=== PATIENT | male | born 1975 | race African-American/Black ===

== ENCOUNTER 2024-09-02 13:13 | Outpatient (CLI) | payer BC, SELFPAY ==
--- OUTSIDE RECORDS SUMMARY | 2024-09-02 13:22 | XMS_ITS | Data Portability ---
Author Organization [facility] - Suzette CRUMP Address [address] [place] [address] Care Team Providers Care [employer] Travel Counselor Name Role Phone ARAMIS LEO Primary Care Provider [phone] Assessment Encounter Date Assessment Date Assessment LastModified by Organization Details LastModified Time 09/26/2023 09/26/2023 Pt presents as ER f/u. Pt with ED visit for the management of c/o skin abscess: tmond Not available 09/26/2023 21:11:04 12/11/2023 12/11/2023 ACUTE VISIT: Pt presents with acute complaints r/t : SKIN LESION tmond Not available 12/11/2023 12:11:58 04/15/2024 04/15/2024 Pt presents for annual visit. Denies acute problems or concerns: tmond Not available 04/15/2024 12:27:37 Plan of Treatment Reminders Order Date Submit Date Provider Last Modified By Organization Details Last Modified Time Details Appointments ANNUAL 30 2025 10:00A Maury LEO NP Not available Not available Not available Lab vitamin D, 25-hydrox y, total, serum 2024 025 [facility], [address], [address], [place], [address], 04/16/2024 08:26:35 HbA1c (hemoglob in A1c), blood 2024 025 [facility], [address], [address], [place], [address], 04/16/2024 08:26:31 lipid panel, serum 2024 025 [facility], [address] [place] [address], [address], [place], [address], 04/16/2024 08:26:28 TSH, ultra-sen sitive, serum 2024 025 [facility], [address] [place] [address], [address], [place], [address], 04/16/2024 08:26:30 CMP, serum or plasma 2024 025 [facility], [address] [place] [address], [address], [place], [address], 04/16/2024 08:26:29 CBC 2024 025 [facility], [address] [place] [address], [address], [place], [address], 04/16/2024 08:26:34 magnesium , serum or plasma 2024 025 [facility], [address] [place] [address], [address], [place], [address], 04/16/2024 08:26:33 Referral orthopedi c surgeon referral - Pt c/o intermitt ent right knee popping out of place for about 5 months, accompani ed by excruciat ing pain. Please further evaluate and treat if necessary . 2024 025 [facility], [address] [facility] [address] [facility], [place], [address], 08/03/2024 13:25:24 hearing screening referral - Pt notes decrease hearing in left ear for the past year, TM unremarka ble, please further evaluate and treat if necessary . [address] [facility] (Audiology), [address], [place], [address], 08/03/2024 13:30:34 Procedures None recorded. Surgeries None recorded. Imaging XR, knee, 3 view - Pt c/o intermitt ent right knee popping out of place for about 5 months. 2024 025 [facility], [address] [place], [address], 08/31/2024 04:14:17 Medication Orders atorvasta tin 20 mg tablet 2024 025 [facility][id number], [address], [place], [place], [id number], 08/03/2024 13:15:28 naproxen 500 mg tablet 2024 025 [facility][id number], [address], [place], [place], [id number], 09/02/2024 05:02:04 doxycycli ne hyclate 100 mg capsule 2023 025 [facility] #[id number], [address], [place], [place], [id number], 04/15/2024 12:13:54 clindamyc in 1 %-benzoyl peroxide 5 % topical gel 2023 024 [facility] #[id number], [address], [place], [place], [id number], 10/03/2023 22:42:11 fluticaso ne propionat e 50 mcg/actua tion nasal spray,emil pension 2023 024 [facility] #[id number], [address], [place], [place], [id number], 12/11/2023 10:36:59 Patient TargetsNo targets recorded. Patient Instructions Encounter Date Encounter Id Patient Instructions Last Modified By Organization Details Last Modified Time 09/26/2023 [id number] -Patient instructed to call office with changes in condition -Pt instructed to present to the ED or urgent care with urgent concerns or urgent changes in condition. tmond Not available 09/26/2023 21:11:15 -Discussed POC -Pt to follow up with routine f/u visit as discussed tmond Not available 09/26/2023 21:11:26 12/11/2023 [id number] folliculitis: care instructions tmond Not available 12/11/2023 12:12:21 -Patient instructed to call office with changes in condition -Pt instructed to present to the ED or urgent care with urgent concerns or urgent changes in condition. tmond Not available 12/11/2023 12:12:02 -Discussed POC -Pt to follow up with routine f/u visit as discussed tmond Not available 12/11/2023 12:12:12 04/15/2024 [id number] Quitting Tobacco : Care Instructions tmond Not available 04/15/2024 13:38:01 A healthy lifestyle: care instructions tmond Not available 04/15/2024 13:37:26 starting a weigh t loss plan: care instructions tmond Not available 04/15/2024 13:37:26 -Patient instructed to call office with changes in condition -Pt instructed to present to the ED or urgent care with urgent concerns or urgent changes in condition. tmond Not available 04/15/2024 12:20:21 -Discussed POC; further managed r/t pending lab values -Pt to follow up with routine f/u visit as discussed -Pt informed of optimum health recommendations: 150 mins of aerobic exercise weekly 7-9 hrs of sleep 7-13 servings of fruit and vegetables each day 1/2 of body weight in oz of water daily Plant based diet tmond Not available 04/15/2024 12:20:16 08/03/2024 [id number] A healthy lifestyle: care instructions [id number] Not available 08/03/2024 13:30:40 high cholesterol : care instructions [id number] Not available 08/03/2024 13:15:32 Quitting Tobacco : Care Instructions [email or web address] Not available 08/03/2024 13:30:40 knee pain or injury: care instructions [email or web address] Not available 08/03/2024 13:15:11 -Avoid using in-ear headphones (AirPods) continuously; use over-ear headphones if needed. -Keep headphone volume at a safe level (no louder than 60% max volume). -Follow up with audiology and orthopedics as referred. -Apply RICE (rest, ice, compression, elevation) to right knee if discomfort occurs. -Avoid kneeling, squatting, or high-impact activities until cleared by ortho. -Return to clinic or urgent care for worsening knee pain, instability, or if ear symptoms progress. [email or web address] Not available 08/03/2024 16:16:43 -POC discussed -Return to the office as needed [email or web address] Not available 08/03/2024 16:17:37 Reason for Referral Hearing Screening Referral f or Hearing loss of left ear Pt notes decrease hearing in left ear for the past year, TM unremarkable, please further evaluate and treat if necessary. Referring Physician: Danica Pressley [facility], Encounter Date: 08/03/2024 Orthopedic Surgeon Referral for Pain of right knee joint Pt c/o intermittent right knee popping out of place for about 5 months, accompanied by excruciating pain. Please further evaluate and treat if necessary. Referring Physician: Danica Pressley [facility], Encounter Date: 08/03/2024 Results Created Date Observation Date Name Description Value Unit Range Abnormal Flag Note LastModifiedBy Organization Detail LastModifiedTime 04/15/1904/16/2024 LIPID PANEL cholesterol, total 163 mg/dL 100-19 9 Not Available [facility] [address] [facility], [place], [address], 04/16/2024 08:26:27 04/15/19 25 04/16/2024 LIPID PANEL triglyceride s 67 mg/dL 0-149 Not Available [facility] [address] [facility], [place], [address], 04/16/2024 08:26:27 04/15/19 25 04/16/2024 LIPID PANEL HDL cholesterol 43 mg/dL >39 Not Available [facility] [address] [place], [address], 04/16/2024 08:26:27 04/15/19 25 04/16/2024 LIPID PANEL VLDL cholesterol magy 13 mg/dL 5-40 Not Available [facility] [address] [place], [address], 04/16/2024 08:26:27 04/15/19 25 04/16/2024 LIPID PANEL LDL chol calc ([facility]) 107 mg/dL 0-99 above high normal Not Available [facility] [address] [place], [address], 04/16/2024 08:26:27 04/15/19 25 04/16/2024 COMP. METAB OLIC PANEL (14) glucose 87 mg/dL 70-99 Not Available [facility] [address] [place], [address], 04/16/2024 08:26:29 04/15/19 25 04/16/2024 COMP. METAB OLIC PANEL (14) BUN 17 mg/dL 6-24 Not Available [facility] [address] [place], [address], 04/16/2024 08:26:29 04/15/19 25 04/16/2024 COMP. METAB OLIC PANEL (14) creatinine 0.86 mg/dL 0.76-1 .27 Not Available [facility] [address] [place], [address], 04/16/2024 08:26:29 04/15/19 25 04/16/2024 COMP. METAB OLIC PANEL (14) eGFR 107 mL/mi n/1.7 3 >59 Not Available [facility] [address] [place], [address], 04/16/2024 08:26:29 04/15/19 25 04/16/2024 COMP. METAB OLIC PANEL (14) BUN/creatini ne ratio 14 11- Not Available [facility] [address] [place], [address], 04/16/2024 08:26:29 04/15/19 25 04/16/2024 COMP. METAB OLIC PANEL (14) sodium 142 mmol/ L 134-14 4 Not Available [facility] [address] [place], [address], 04/16/2024 08:26:29 04/15/19 25 04/16/2024 COMP. METAB OLIC PANEL (14) potassium 4.6 mmol/ L 3.5-5. 2 Not Available [facility] [address] [place], [address], 04/16/2024 08:26:29 04/15/19 25 04/16/2024 COMP. METAB OLIC PANEL (14) chloride 104 mmol/ L 96-106 Not Available [facility] [address] [place], [address], 04/16/2024 08:26:29 04/15/19 25 04/16/2024 COMP. METAB OLIC PANEL (14) carbon dioxide, total 25 mmol/ L - Not Available [facility] [address] [place], [address], 04/16/2024 08:26:29 04/15/19 25 04/16/2024 COMP. METAB OLIC PANEL (14) calcium 9.8 mg/dL 8.7-10 .2 Not Available [facility] [address] [place], [address], 04/16/2024 08:26:29 04/15/19 25 04/16/2024 COMP. METAB OLIC PANEL (14) protein, total 7.8 g/dL 6.0-8. 5 Not Available [facility] [address] [place], [address], 04/16/2024 08:26:29 04/15/19 25 04/16/2024 COMP. METAB OLIC PANEL (14) albumin 4.6 g/dL 4.1-5. 1 Not Available [facility] [address] [place], [address], 04/16/2024 08:26:29 04/15/19 25 04/16/2024 COMP. METAB OLIC PANEL (14) globulin, total 3.2 g/dL 1.5-4. 5 Not Available [facility] [address] [place], [address], 04/16/2024 08:26:29 04/15/19 25 04/16/2024 COMP. METAB OLIC PANEL (14) bilirubin, total 0.2 mg/dL 0.0-1. 2 Not Available [facility] [address] [place], [address], 04/16/2024 08:26:29 04/15/19 25 04/16/2024 COMP. METAB OLIC PANEL (14) alkaline phosphatase 94 IU/L 44-121 Not Available [facility] [address] [place], [address], 04/16/2024 08:26:29 04/15/19 25 04/16/2024 COMP. METAB OLIC PANEL (14) AST (SGOT) 19 IU/L 0-40 Not Available [facility] [address] [place], [address], 04/16/2024 08:26:29 04/15/19 25 04/16/2024 COMP. METAB OLIC PANEL (14) ALT (SGPT) 13 IU/L 0-44 Not Available [facility] [address] [facility], [place], [address], 04/16/2024 08:26:29 04/15/19 25 04/16/2024 TSH RFX ON ABNOR MAL TO FREE T4 TSH 1.000 uIU/m L 0.450- 4.500 Not Available [facility] [address] [facility], [place], [address], 04/16/2024 08:26:30 04/15/19 25 04/16/2024 HEMOG LOBIN A1C hemoglobin A1C 6.0 % 4.8-5. 6 above high normal Predi abete s: 5.7 - 6.4 Diabe cecil: >6.4 Glyce trell contr ol for adult s with diabe cecil: <7.0 Not Available [facility] [address] [facility], [place], [address], 04/16/2024 08:26:31 04/15/19 25 04/16/2024 MAGNE SIUM magnesium 1.9 mg/dL 1.6-2. 3 Not Available [facility] [address] [facility], [place], [address], 04/16/2024 08:26:33 04/15/19 25 04/16/2024 CBC, PLATE LET, NO DIFFE RENTI AL WBC 9.4 x10e3 /uL 3.4-10 .8 Not Available [facility] [address] [place], [address], 04/16/2024 08:26:34 04/15/19 25 04/16/2024 CBC, PLATE LET, NO DIFFE RENTI AL RBC 4.86 x10e6 /uL 4.14-5 .80 Not Available [facility] [address] [place], [address], 04/16/2024 08:26:34 04/15/19 25 04/16/2024 CBC, PLATE LET, NO DIFFE RENTI AL hemoglobin 13.5 g/dL 13.0-1 7.7 Not Available [facility] [address] [facility], [place], [address], 04/16/2024 08:26:34 04/15/19 25 04/16/2024 CBC, PLATE LET, NO DIFFE RENTI AL hematocrit 42.0 % 37.5-5 1.0 Not Available [facility] [address] [facility], [place], [address], 04/16/2024 08:26:34 04/15/19 25 04/16/2024 CBC, PLATE LET, NO DIFFE RENTI AL MCV 86 fL 79-97 Not Available [facility] [address] [place], [address], 04/16/2024 08:26:34 04/15/19 25 04/16/2024 CBC, PLATE LET, NO DIFFE RENTI AL MCH 27.8 pg 26.6-3 3.0 Not Available [facility] [address] [facility], [place], [address], 04/16/2024 08:26:34 04/15/19 25 04/16/2024 CBC, PLATE LET, NO DIFFE RENTI AL MCHC 32.1 g/dL 31.5-3 5.7 Not Available [facility] [address] [place], [address], 04/16/2024 08:26:34 04/15/19 25 04/16/2024 CBC, PLATE LET, NO DIFFE RENTI AL RDW 12.7 % 11.6-1 5.4 Not Available [facility] [address] [place], [address], 04/16/2024 08:26:34 04/15/19 25 04/16/2024 CBC, PLATE LET, NO DIFFE RENTI AL platelets 225 x10e3 /uL 150-45 0 Not Available [facility] [address] [facility], [place], [address], 04/16/2024 08:26:34 04/15/19 25 04/16/2024 VITAM IN D, 25-HY DROXY vitamin D, 25-hydroxy 9.8 NG/mL 30.0-1 00.0 below low normal Vitam in D defic iency has been defin ed by the Insti tute of Medic ine and an Endoc rine Socie ty pract ice guide line as a level of serum 25-OH vitam in D less than 20 ng/mL (1,2) . The Endoc rine Socie ty went on to furth er defin e vitam in D insuf ficie ncy as a level betwe en 21 and 29 ng/mL (2). 1. IOM (Inst itute of Medic ine). 2009. Nicolas ry refer ence paolo es for calci um and D. Jonatan couch [place]: The Natio nal [facility] Press . 2. Ashli damon MF, Jennifer dickson [place], Micah off-F errar i [place], et al. Evalu ation , treat ment, and preve ntion of vitam in D defic iency : an Endoc rine Socie ty clini magy pract ice guide line. JCEM. 2010; 96(7) :1911 -30. Not Available [facility] [address] [facility], [place], [address], 04/16/2024 08:26:35 Result Notes None recorded. Problems Name Problem SNOMED Code Status Onset Date Resolution Date Notes Provider Name and Address Organization Details Recorded Time Headache 08947354 Active 2023 VENU VINES Attn: George mc,[address] [facility], [place], [address], [facility] 4 15:16:22 Cigar smoker 43081490 Active 2023 VENU VINES Attn: Accountin g,[address] [facility], [place], [address], [place] [facility] 4 15:19:04 Chronic sinusitis 83533231 Active 2023 VENU VINES Attn: Accountin g,[address] [facility], [place], [address], [place] [facility] 4 15:19:02 Influenza vaccination declined 594718601 Active 2023 VENU VINES Attn: Accountin g,[address] [facility], [place], [address], [place] [facility] 4 15:50:33 Tetanus vaccination declined by patient 971184881 Active 2023 VENU VINES Attn: Accountin g,[address] 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, [place], [address], [place] [facility] 4 13:47:38 Erectile dysfunction 310196385 Active 2023 VENU VINES Attn: Accountin g,[address] [facility], [place], [address], [place] [facility] 4 13:47:40 Body mass index 25-29 - overweight 051191653 Active 2024 VENU VINES Attn: Accountin g,[address] [facility], [place], [address], [place] [facility] 5 13:38:09 Nicotine dependence 40630296 Active 2024 VENU VINES Attn: Accountin g,[address] [facility], [place], [address], [place] [facility] 5 13:38:07 Prediabetes 149039394 Active 2024 VENU VINES Attn: George mc,[address] [place], [address], [place] [facility] 5 11:53:15 Vitamin D deficiency 14505235 Active 2024 VENU VINES Attn: George mc,[address] [place], [address], [place] [facility] 5 11:53:12 Hyperlipopr oteinemia 9591392 Active 2024 VENU VINES Attn: George mc,[address] [place], [address], [place] [facility] 5 11:53:17 Hearing loss of right ear 814521819 Active 2024 DANICA PRESSLEY NP Attn: Niallle mc,[address] [place], [address], [place] [facility] 5 13:08:04 Hearing loss of left ear 183539380 Active 2024 DANICA PRESSLEY NP Attn: George mc,[address] [place], [address], [place] [facility] 5 13:08:07 Smoker 18662652 Active 2024 DANICA PRESSLEY NP Attn: Niallle mc,[address] [place], [address], [place] [facility] 5 13:09:06 Overweight 052878835 Active 2024 DANICA PRESSLEY NP Attn: Niallle mc,[address] [place], [address], [place] [facility] 5 13:09:06 Recurrent dislocation of right knee Active 2024 DANICA PRESSLEY NP Attn: Niallle mc,[address] [place], [address], [place] [facility] 5 13:10:42 Pain of right knee joint 0901748023412 00 Active 2024 DANICA PRESSLEY NP Attn: George mc,[address] [facility], [place], [address] 5 13:11:22 Problem Notes None recorded. Procedures Surgical History Date Name Laterality Status Provider Name and Address Organization Details Recorded Time 3 procedure on shoulder completed Huma Pearce MA [facility] 03/19/2023 14:31:55 Imaging Results None recorded. Procedure Notes None recorded. Medical Equipment None Reported. Allergies Allergen ID Allergen Name Allergen Category Reaction Reaction Severity Criticality Documentation Date Start Date Code Code System Note Provider Name and Address Organization Details Recorded Time 952073 tramadol medicatio n itching Not available Not available 03/19/2023 29414 RxNorm IHSAN Wheeler, [facility] 4 14:28:58 552957 cetirizin e medicatio n Not available Not available Not available 04/19/20232023 37054 RxNorm Rayne CrenshawTrell [facility], [facility] 4 16:07:09 Medications Name Sig Start Date Stop Date Status Note LastModified by Organization Details LastModified Time Prescript ion - Prior Authoriza tion Request 10/02 completed medicati on prior authoriz ation Not Available Not Available Not Available Refresh Tears 0.5 % eye drops Apply 1 drop 4 times a day by ophthalm ic route around the clock. 07/29 completed Not Available Not Available Not Available doxycycli ne hyclate 100 mg capsule TAKE 1 CAPSULE BY MOUTH EVERY 12 HOURS FOR 10 DAYS 04/15 completed Not Available Not Available Not Available atorvasta tin 20 mg tablet TAKE 1 TABLET BY MOUTH EVERY EVENING FOR CHOLESTE ROL active Not Available Not Available No t Available clindamyc in HCl 300 mg capsule 09/25 completed Not Available Not Available Not Available cetirizin e 10 mg tablet TAKE 1 TABLET BY MOUTH EVERY MORNING FOR 90 DAYS 07/29 completed Not Available Not Available Not Available ibuprofen 800 mg tablet TAKE 1 TABLET BY MOUTH EVERY 4 TO 6 HOURS NEEDED 12/10 completed Not Available Not Available Not Available sumatript an 25 mg tablet PLEASE SEE ATTACHED FOR DETAILED DIRECTIO NS 07/29 completed Not Available Not Available Not Available clindamyc in 1 %-benzoyl peroxide 5 % topical gel APPLY TOPICALL Y TO THE AFFECTED AREA TWICE DAILY IN THE MORNING AND IN THE EVENING 10/02 completed Not Available Not Available Not Available aspirin 81 mg tablet,de layed release TAKE 1 TABLET BY MOUTH EVERY EVENING FOR CHOLESTE ROL active Not Available Not Available No t Available oseltamiv ir 75 mg capsule TAKE 1 CAPSULE BY MOUTH TWICE DAILY 07/29 completed Not Available Not Available Not Available neomycin- polymyxin -dexameth 3.5 mg/mL-10, 000 unit/mL-0 .1% eye drops INSTILL 1 DROP IN THE RIGHT EYE EVERY 6 HOURS 07/29 completed Not Available Not Available Not Available bisacodyl 5 mg tablet,de layed release TAKE ALL 4 TABLETS BY MOUTH AT THE BEGINNIN G OF YOUR PREP THE DAY PRIOR TO YOUR PROCEDUR E 07/29 completed Not Available Not Available Not Available ergocalci ferol (vitamin D2) 1,250 mcg (50,000 unit) capsule TAKE 1 CAPSULE BY MOUTH EVERY WEEK active Not Available Not Available No t Available polyethyl samantha glycol 3350 17 gram/dose oral powder KONG IN 64 OZ OF LIQUID AND DRINK BY MOUTH OVER 90 MINUTES NO LATER THAN 5 PM THE DAY PRIOR TO YOUR PROCEDUR E 07/29 completed Not Available Not Available Not Available fluticaso ne propionat e 50 mcg/actua tion nasal spray,emil pension SHAKE LIQUID AND USE 1 SPRAY IN EACH NOSTRIL EVERY 12 HOURS FOR SINUSITI S 12/10 completed Not Available Not Available Not Available naproxen 500 mg tablet Take 1 tablet twice a day by oral route as directed . 09/02 completed Not Available Not Available Not Available Allergy Relief (fexofena dine) 180 mg tablet TAKE 1 TABLET BY MOUTH EVERY DAY IN THE MORNING FOR ALLERGIE S 12/10 completed Not Available Not Available Not Available Xhance 93 mcg/actua tion breath activated aerosol [place] 1 spray every 12 hours by intranas al route for 90 days, for SINUSITI S. 09/254 completed Not Available Not Available Not Available Daily Probiotic (S. boulardii ) 250 mg capsule TAKE 1 CAPSULE BY MOUTH TWICE DAILY FOR 21 DAYS 12/10 completed Not Available Not Available Not Available Vitals Date Recorded Body height Body mass index (BMI) Body weight Body temperature Oxygen saturation Oxygen saturation in Arterial blood by Pulse oximetry Heart rate Systolic And Diastolic Provider Name and Address Organization Details Last Updated DateTime 5 187.96 cm 28.9 kg/m2 095363. 64 g 98 [degF] 98 % 98 % 90 /min 139/69 mm[Hg] Huma Pearce MA [facility] 5 12:15:32 Date Recorded Body height Body mass index (BMI) Body weight Oxygen saturation Oxygen saturation in Arterial blood by Pulse oximetry Heart rate Respiratory rate Body temperature Systolic And Diastolic Provider Name and Address Organization Details Last Updated DateTime 5 187.96 cm 28.1 kg/m2 39211.4 5 g 100 % 100 % 78 /min 18 /min 98.1 [degF] 127/78 mm[Hg] Naz Lara MA [facility] 5 12:35:23 Date Recorded Body height Body mass index (BMI) Body weight Oxygen saturation Oxygen saturation in Arterial blood by Pulse oximetry Body temperature Heart rate Systolic And Diastolic Provider Name and Address Organization Details Last Updated DateTime 4 187.96 cm 28 kg/m2 11446.1 4 g 98 % 98 % 96.6 [degF] 79 /min 128/86 mm[Hg] Huma Pearce MA [facility] 4 15:12:23 Date Recorded Body height Body mass index (BMI) Body weight Body temperature Oxygen saturation Oxygen saturation in Arterial blood by Pulse oximetry Heart rate Systolic And Diastolic Provider Name and Address Organization Details Last Updated DateTime 4 187.96 cm 28.8 kg/m2 560350. 69 g 97.6 [degF] 98 % 98 % 71 /min 118/72 mm[Hg] Huma Pearce MA [facility] 4 10:38:03 Social History Question Answer Notes LastModified by Organizat ion Details LastModified Time Tobacco Smoking Status Current Every Day Smoker Huma Pearce MA [facility] 09/11/2023 12:38:31 Do You Have An Advance Directive? No Information n ot available 04/23/2023 Are You Blind Or Do You Have Difficulty Seeing? Yes Information n ot available 03/19/2023 What Is Your Level Of Caffeine Consumption? Heavy Coffee Information not available 07/30/2023 In The 14 Days Before Symptom Onset, Have You Had Close Contact With A Laboratory-confirm ed COVID-19 While That Case Was Ill? No Information n ot available 03/19/2023 In The 14 Days Before Symptom Onset, Have You Had Close Contact With A Person Who Is Under Investigation For COVID-19 While That Person Was Ill? No Information not available 03/19/2023 Have You Been To An Area Known To Be High Risk For COVID-19? No Information not available 03/19/2023 Are You Deaf Or Do You Have Serious Difficulty Hearing? Yes Information not available 03/19/2023 What Type Of Diet Are You Following? REGULAR Information n ot available 03/19/2023 Are There Any Guns Present In Your Home? No Information not available 08/03/2024 Do You Have A Medical Power Of Civilian Jail Officer? No Information not available 04/23/2023 What Was The Date Of Your Most Recent Tobacco Screening? 08/03/2024 Information not available 08/03/2024 How Many Children Do You Have? 0 Information not available 03/19/2023 What Is Your Current Pack Years? 20-29packyea rs Information not available 09/11/2023 Do You Use Protection During Sex? No Information not available 03/19/2023 What Is Your Relationship Status? Information not available 03/19/2023 Do You Use Your Seat Belt Or Car Seat Routinely? Yes Information not available 03/19/2023 Are You Sexually Active? Yes Information not available 03/19/2023 Do You Have Smoke And Carbon Monoxide Detectors In Your Home? Yes Information not available 08/03/2024 At What Age Did You Start Smoking Tobacco? 18 Information not available 09/11/2023 Are You Passively Exposed To Smoke? Yes Information no t available 08/03/2024 How Much Tobacco Do You Smoke? 1 PPD Information not available 09/11/2023 Do You Use Sunscreen Routinely? No Information not available 08/03/2024 Has Tobacco Cessation Counseling Been Provided? Yes tmond Information not available 03/19/2023 On What Date Was Tobacco Cessation Counseling Provided? 08/03/2024 Information not available 08/03/2024 How Many Years Have You Smoked Tobacco? 30 Information not available 09/11/2023 How Many Years Have You Used E-cigarettes Or Vape? 3 Information not available 07/30/2023 Sex: Male Functional Status Question Answer Note LastModified by Organizat ion Details LastModified Time Do you use any illicit or recreational drugs? Yes marijuana Information not available 07/30/2023 Do you or have you ever used any other forms of tobacco or nicotine? Yes Information not available 03/19/2023 What is your level of alcohol consumption? None Information not available 03/19/2023 Do you or have you ever used smokeless tobacco? Never used smokeless tobacco Information not available 03/19/2023 Are you currently employed? No Information not available 03/19/2023 Are you able to care for yourself? Yes Information not available 03/19/2023 Do you or have you ever used e-cigarettes or vape? Current user of electronic cigarettes Information not available 03/19/2023 What is your exercise level? Occasional Information not available 03/19/2023 Mental Status Question Answer Note LastModified by Organization D etails LastModified Time Do you feel stressed (tense, restless, nervous, or anxious, or unable to sleep at night)? [id number] Information not available 03/19/2023 Family History Relationship Description Onset Age of this Age Resolved Age Notes LastModified by Organization Details LastModified Time Sister Hypertensive disorder aharrisma Not available 2023 14:33:43 Maternal Grandmother Hypertensive disorder aharrisma Not available 2023 14:33:49 Medical History No medical history recorded. Immunizations Vaccine Type Date Status Note Provider Nam e and Address Organization Details Recorded Time MMR 3 completed IHSAN [place], [place] - [facility] 03/19/2023 14:32:10 MMR 9 completed Huma Pearce [place], [place] [facility] 03/19/2023 14:32:10 DTP 3 [place]uma [place] [facility] 03/19/2023 14:32:10 DTP 9 [place]HS[place] [facility] 03/19/2023 14:32:10 DTP 9 everardo Pearce [place] [facility] 03/19/2023 14:32:10 DTP 8 completed [place]HS[place] [facility] 03/19/2023 14:32:10 DTP 9 everardo [place] [facility] 03/19/2023 14:32:10 OPV 3 [place]HSAN [place] [facility] 03/19/2023 14:32:10 OPV 9 [place]HS[place] [facility] 03/19/2023 14:32:10 OPV 8 [place] [facility] 03/19/2023 14:32:10 OPV 9 [place]HS[place] [facility] 03/19/2023 14:32:10 Td (adult), 2 Lf tetanus toxoid, preservative free, adsorbed 3 completed IHSAN [place] [facility] 03/19/2023 14:32:10 Past Encounters Encounter ID Performer Location Encounter Start Date Encounter Closed Date Diagnosis/Indication Diagnosis SNOMED-CT Code Diagnosis ICD10 Code Diagnosis [facility] [id number] [facility] [address] [place] [address] 03/19/2023 14:03:51 03/20/2023 16:03:29 Patient new to provider [id number] 84512 Z76.89 -Initial visit in the [facility] ent of care Physical examination 588 0005 Z04.9 -PE complete-A dvised in routine care for current age-Pt stable Body mass index 25-29 - overweight 823015870 Z68.27 -Pt advised of BMI -Pt encouraged to eat a plant-base d diet, minimizing processed foods and portion control -Pt advised on the recommenda tions for routine exercise Headache 09542066 R51.9 The patient provides a headache history most suggestive of cluster headaches. Further diagnostic evaluation is not required. Treatment recommenda tions are outlined.* *PRINT FOR PT PLEASE HIV screening 343082194 Z11.4 -Routine Recommende d screening Cholesterol screening 27 0429358 Z13.220 -Routine Recommende d screening Diabetes m ellitus screening 946620695 Z13.1 -Routine Recommende d screening Thyroid di sorder screening 107427710 Z13.29 -Routine Recommende d screening At [facility] ed risk of nutritional deficit 089388172 Z91.89 -Routine Recommende d screening Patient me dical record not available [id number] Z76.89 -Acquire records for lab review and further management -*TODD?PU LL RECORD FROM [facility]; ED VISIT FROM JANUARY He endorses he was ordered a head CT Chronic sinusitis 335042 00 J32.9 -Pt presents with signs/symp toms chronic sinusitis- Pt to manage with nasal corticoste roids and antihistam ine.-Pt to employ conservati ve management as well PRINT FOR PT PLEASE Cigar smoker 47431960 Z7 2.0 -Pt is a current smoker-Pt advised in the derogatory effects of smoking-Co unseling for smoking cessation completed Influenza vaccination declined 983004339 Z28.21 -DECLINES Tetanus va ccination declined by patient 057188159 Z28.21 -DECLINES [id number] [facility] [address] [place] [address] 04/10/2023 12:07:31 04/11/2023 11:31:34 Headache 51906556 R51.9 The patient provides a headache history most suggestive of cluster vs. sinus headaches. Further diagnostic evaluation is not required. Treatment recommenda tions are outlined. Pt to call with medication s he has tried as he endorses many medication s he has (remaining at home) have failed (will trial medication s once establishe d), Pt to have eye exam as ordered below; Pt to apply conservati ve measures PRINT INSTRUCTIO NS FOR PT Ophthalmic examination and evaluation 00327281 Z01.00 -Pain of posterior OD r/t headaches- Endorses blurred vision and weakness of associated eyelid Screening for malignant neoplasm of colon 727864783 Z12.11 -Routine Recommende d screening [id number] Rema Villegas MD [facility] [address] [place] [address] 04/23/2023 10:13:40 04/24/2023 11:05:08 Dry eye syndrome of right eye 4169277207 26078 H04.121 Acute dacr yoadenitis of right eye 7509176745 52978 H04.476 [id number] Rema Villegas MD [facility] [address] [place] [address] 05/07/2023 10:04:23 05/08/2023 13:45:39 Dry eye syndrome of right eye 5951123922 94434 H04.121 Acute dacr yoadenitis of right eye 7485222027 85055 H04.755 [id number] Dick Fuller [facility] [address] [place] [address] 05/07/2023 10:04:57 05/07/2023 15:24:05 Screening for malignant neoplasm of colon 221485357 Z12.11 Patient with need for screening colonoscop y. Risks and benefits explained to patient, including bleeding and perforatio n. We have discussed the procedure details as well as the benefits of colonoscop y screening for malignancy . Patient has been given instructio ns for bowel preparatio n and explained the need for and importance of the prep. Will proceed to the endoscopy suite as soon as is convenient . [id number] Rema Villegas MD [facility] [address] [place] [address] 06/04/2023 10:53:29 06/05/2023 08:34:51 Blepharitis of lower eyelid caused by Staphylococcus [id number] B95.8 [id number] [facility] [address] [place] [address] 07/30/2023 10:52:42 07/31/2023 11:28:08 Headache 69457276 R51.9 07/30/2023 :-Pt called after prior visit with update r/t prior medication s. Pt case states:Marcelo bruner stated that he is allergic toCetiriz ine and the medicine that he is taking for his headaches is [facility] Cold & Sinus D and Extra Strength Tylenol. 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 Further diagnostic evaluation is not required. Treatment recommenda tions are outlined. 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 Pt case states:Marcelo bruner stated that he is allergic toCetiriz ine and the medicine that he is taking for his headaches is [facility] Cold & Sinus D and Extra Strength Tylenol. 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 Further diagnostic evaluation is not required. Treatment recommenda tions are outlined. 09/11/2023 :-Mild improvemen t as pt has failed regimen above; Plan to control sinusitis and call if not improved Chronic sinusitis 017263 00 J32.9 -Pt presents with signs/symp toms chronic sinusitis that is uncontroll ed-Pt to manage with nasal corticoste roids and antihistam ine where he has failed at this as has ot received the medication s, yet has not called the office-Pt has initiated conservati ve management as well with the use of the neti-pot with some improvemen t PROVIDE PT WITH THE XHANCE SLIP PLEASE FOR THE DEMO 07/30/23 [id number] [facility] ([facility] [address] [place] [address] 09/26/2023 14:59:34 09/30/2023 09:11:16 Seen in emergency clinic [id number] Z76.89 -Recent visit to the ED-Catherine combs; further management deferred to PCP Pseudofoll iculitis barbaren 898280678 L73.1 -Uncontrol led whereas pt has experience d recent abscess x2 simultaneo usly-Furth er eval and management as outlined Chronic sinusitis 021502 00 J32.9 -Pt presents with signs/symp toms chronic sinusitis that is uncontroll ed-Pt to manage with nasal corticoste roids and antihistam ine where he has failed at this as has ot received the medication s, yet has not called the office-Pt has initiated conservati ve management as well with the use of the neti-pot with some improvemen t 09/26/2023 :-Xhance off formulary- Management as outlined [id number] [facility] ([facility] [address] [place] [address] 12/11/2023 10:28:52 12/13/2023 11:15:40 Pseudofolliculitis barbae 793605667 L73.1 -Uncontrol led whereas current status: abscess x2 simultaneo usly-Furth er management as outlined [id number] [facility] ([facility] [address] [place] [address] 04/15/2024 11:56:13 04/15/2024 16:10:31 Physical examination 8567496 Z04.9 -PE complete-A dvised in routine care for current age-Pt stable Body mass index 25-29 - overweight 434153155 Z68.27 -Pt advised of BMI -Pt encouraged to eat a plant-base d diet, minimizing processed foods and portion control -Pt advised on the recommenda tions for routine exercise At [facility] risk for nutritional problem 832611010 Z91.89 -Routine Recommende d screening Nicotine dependence 5629 4008 F17.200 -Pt is a current smoker-Pt advised in the derogatory effects of smoking-Co unseling for smoking cessation completed [id number] Javid Burleson MD [facility] (Adult[facility] [address] [place] [address] 08/03/2024 12:21:16 08/04/2024 13:24:23 Smoker 11068959 F17.200 -Pt is a current smoker -Pt advised in the derogatory effects of smoking -Counselin g for smoking cessation completed Overweight 619964843 E66 .3 -Discuss BMI and provide guidance on healthy diet and exercise for weight management .-Educated that maintainin g a healthy weight reduces the risk of chronic conditions like diabetes and heart disease.-F ocus on balanced meals and regular exercise to help achieve a healthier BMI. Hearing lo ss of left ear 654736364 H91.92 -Suspected noise-scarlet jayjay or conductive hearing loss.-Ron ology referral placed for comprehens chey hearing evaluation .-Advised patient to limit use of in-ear headphones and avoid high volume.-EN T referral if audiology confirms hearing deficit requiring further evaluation . 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 -Orthopedi c referral for further evaluation of patellar tracking instabilit y.-Advised to avoid activities that aggravate symptoms. Hyperlipoproteinemia 374 4001 E78.5 -Medicatio ns refilled-C ontinue medication as prescribed .-Encour ed patient to:-Avoid Foods High Cholestero l, Saturated and Trans Fats (Butter, Fried Foods, Cheese, Red Meats)-Exe rcise Regularly- Avoid Alcohol-In crease Soluble Fiber-Eat Foods Rich In [place]-1 Fatty Acids-Pt educated about the risk vs benefits for compliance , noncomplia nce can lead to coronary artery diseases, stroke, heart attacks, and even . [id number] ANDRA CANNON MD [facility] [address] [place] [address] 08/03/2024 14:14:32 08/03/2024 14:14:51 Health Concerns Section Related Observation LastModified by Organization Detai ls LastModified Time None Recorded Concern Status LastModified by Organization Details LastModified Time None Recorded Advance Directives Directive N: Payers Insurance Date Sequence Insurance Name Policy Number Policy Hidalgo Covered Member ID Hidalgo Member ID Guarantor Name 03/19/2023 1 [place] Case Vasquez [id number] Case Vasquez 05/03/2023 2 [place] Case Vasquez [id number] Case Vasquez 07/31/2024 1 [facility] [facility] (MEDICAID REPLACEMENT - HMO) [id number] Case Vasquez [id number] Case Vasquez 03/19/2023 1 [facility] [facility] - DUAL ELIGIBLE (MEDICARE REPLACEMENT/AD VANTAGE - HMO) Case Vasquez [id number] Case Vasquez 03/19/2023 1 [facility] Case Vasquez [id number] Case Vasquez Notes Date Note Type Note Provider Name and Address Organization Details Recorded Time 09/26/2023 text/html Emergency Room Follow-Up RecordReported bypatient.Discharge InformationPt is S/P I&D of abscess of bilat mandibles after r/t hx of uncontrolled folliculitis. Stable and healed at this time. Yet mild-mod exacerbation noted to generalized bearded area of face [facility] Attn: [address] [place], [place], [address] [place] [address], [facility] [place] 09/26/2023 21:12:05 12/11/2023 text/html Rash/Skin LesionReported bypatient.Location:f acosta; [facility] Quality:not itchy; not bleeding; decreasing in size; stable; getting cnc operator machinist;painful;weep ing;multiple;general ized;draining Severity:moderate Duration:has noted for >3 months Onset/Timing:recurri ng Context:no new detergents or skin products; no one else with similar rash; not scratching Alleviating Factors:nothing gives relief Aggravating Factors:nothing makes it worse Associated Symptoms:no fever; no cold symptoms; no nausea; no vomiting; no diarrhea; no urinary symptoms; no chills; no fatigue; no change in weight Treatment History:no history of treatment [facility] Attn: [address] [place], [place], [address] [place] [address], [facility] [place] 12/11/2023 12:12:38 04/15/2024 text/html Pt presents for annual visit. Pt endorses HEADACHES as outlined below.Pt agrees to vaccinations and screenings as outlined in file. Pt is a SMOKER, has a BMI of >27. [facility] Attn: [address] [place], [place], [address] [place] [address], [facility] [place] 04/15/2024 13:38:29 08/03/2024 text/html 49-year-old male presents to the clinic with two primary concerns. First, he reports decreased hearing in the left ear for approximately one year, which he associates with frequent use of AirPods. He denies ear pain, drainage, vertigo, or recent infections. Second, he reports intermittent dislocation or popping out sensation of the right knee, occurring over the past 5 months. He describes the knee as painfully popping out of place and needing to put it back himself. Denies trauma, swelling, locking, or instability between episodes. No additional complaints reported today. DANICA PRESSLEY NP Attn: [address] [place], [address], [facility] 08/03/2024 16:18:34
--- OUTSIDE RECORDS SUMMARY | 2024-09-02 13:22 | XMS_ITS | Clinical Summary ---
Author Organization [facility] Address [address] [place] [address] Care Team Providers Care Small Brake Form Operator Name Role Phone No, Physician Primary Care Provider [phone] Allergies Active Allergy Reactions Criticality Noted Date Comments Tramadol Itching Low 11/15/2022 Medications SUMAtriptan (IMITREX) 25 mg tabletIndicatio ns:Migraine Take 1 tablet (25 mg total) by mouth once as needed for migraine May repeat dose once in 2 hours if no relief. Do not exceed 2 doses in 24 hours. 10 tablet 01/21/2023 Active Medical History Medical History Date Comments Personal history of diseases of skin or subcutaneous tissue History of pilonidal cyst - (Added by TW Conv) Family History Medical History Relation Name Comments Lung cancer Father Family history of lung cancer - (Added by TW Conv) Diabetes Other Family history of diabetes mellitus - Relation: Grandmother (Added by TW Conv) Relation Name Status Comments Father Other Social History Tobacco Use Types Packs/Day Years Used Date Smoking Tobacco: Every Day Personal Safety Answer Date Recorded Have you ever been in or are you currently in a harmful physical or emotional relationship or is someone making you feel afraid or unsafe? 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 Gender Identity Not on file Sexual Orientation Not on file Obstetrics History Last Filed Vital Signs Vital Sign Reading Time Taken Comments Blood Pressure 138/66 01/21/2023 11:45 AM LEAD SOFTWARE ARCHITECT Pulse 68 01/21/2023 11:45 AM LEAD SOFTWARE ARCHITECT Temperature 36.8 C (98.2 F) 01/21/2023 5:38 AM LEAD SOFTWARE ARCHITECT Respiratory Rate 20 01/21/2023 11:45 AM LEAD SOFTWARE ARCHITECT Oxygen Saturation 99% 01/21/2023 11:45 AM LEAD SOFTWARE ARCHITECT Inhaled Oxygen Concentration - - Weight 95.3 kg (210 lb) 01/21/2023 1:23 AM LEAD SOFTWARE ARCHITECT Height 188 cm (6' 2) 01/21/2023 1:23 AM LEAD SOFTWARE ARCHITECT Body Mass Index 26.96 01/21/2023 1:23 AM LEAD SOFTWARE ARCHITECT Plan of Treatment Health Maintenance Due Date Last Done Comments Colon Cancer Screening-Colonoscopy 1977 Depression Screening 1977 Hepatitis C Screening 1977 Prostate Cancer Screening-PSA 1977 Hepatitis B Screening 1995 Regular Well Visit/Exam 18-64 1995 Pneumococcal vaccine <65 (1 of 2 - PCV) 1996 Influenza Vaccine (Season Ended) 2024 DTaP/Tdap/Td Vaccine (6 - Td or Tdap) 03/27/2030 03/27/2020, 07/15/1992, 03/11/1982, Additional history exists Insurance [place] [id number] [facility] [place] [id number] Care Teams Small Brake Form Operator Relationship Specialty Start Date End Date No, Physician PCP - General 01/20/23
--- OUTSIDE RECORDS SUMMARY | 2024-09-02 13:23 | XMS_ITS | Clinical Summary ---
Author Organization [facility] Address [address] [place] [address] Care Team Providers Care Manager Code Name Role Phone Unavailable Primary Care Provider Unavailabl e Source Comments [facility],non-owned Affiliates and Associated Physician Practices is amultiple site organization consisting of ambulatory clinics and hospital sitesin [place], [place], [place] and [place]. This disclosure is being madepursuant to the Care Everywhere program and may not contain all information available regarding this patient. Last updated 17.[facility] Teravac Allergies No known active allergies Medications * Be aware that medications may not be up to date on this document. Alwaysverify current medications with the patient. No known medications Active Problems Problem Noted Date Diagnosed Date S/P tendon repair 04/04/2020 Laceration of right hand 03/27/2020 Immunizations Immunization Administration Dates Next Due TDAP (7yrs+) 03/27/2020 Family History Medical History Relation Name Comments Diabetes - Type 2 Maternal Grandmother High Blood Pressure Sister Relation Name Status Comments Maternal Grandmother Sister Social History Tobacco Use Types Packs/Day Years Used Date Smoking Tobacco: Former Cigarettes 1 25 0 03/27/1995 - 02/26/2020 Smokeless Tobacco: Never Tobacco Cessation:Counseling Given: Yes Alcohol Use Standard Drinks/Week Comments Yes 9 (1 standard drink = 0.6 oz pur e alcohol) socially AUDIT-C Answer Date Recorded Q1: How often do you have a drink containing alc ohol? 2-4 times a month 03/27/2020 Q2: How many drinks containi ng alcohol do you have on a typical day when you are drinking? 3 or 4 03/27/2020 Q3: How often do you have si x or more drinks on one occasion? Weekly 03/27/2020 Overall Financial Resource Strain (CARDIA) Answe r Date Recorded How hard is it for you to pa y for the very basics like food, housing, medical care, and heating? Not very hard 03/27/2020 Hunger Vital Sign Answer Date Recorded Within the past 12 months, y ou worried that your food would run out before you got the money to buy more. Never true 03/27/19 21 Within the past 12 months, t he food you bought just didn't last and you didn't have money to get more. Never true 03/27/2020 PRAPARE - Transportation Answer Date Re corded In the past 12 months, has l ack of transportation kept you from medical appointments or from getting medications? No 02/27 In the past 12 months, has l ack of transportation kept you from meetings, work, or from getting things needed for daily living? No 03/27/2020 Education Answer Date Recorded What is the highest level of school you have completed or the highest degree you have received? 8th grade 03/27/2020 Sex and Gender Information Value Date Recorded Sex Assigned at Not on file Legal Sex Male 3:03 AM [employer] Gender Identity Not on file Sexual Orientation Not on file Last Filed Vital Signs Vital Sign Reading Time Taken Comments Blood Pressure 123/79 04/25/2020 2:24 PM [employer] Pulse 73 04/25/2020 2:24 PM [employer] Temperature 36.1 C (97 F) 04/25/2020 2:24 PM [employer] Respiratory Rate 20 04/25/2020 2:24 PM [employer] Oxygen Saturation 99% 03/28/2020 8:23 AM [employer] Inhaled Oxygen Concentration - - Weight 81.6 kg (180 lb) 04/25/2020 2:24 PM [employer] Height 188 cm (6' 2) 04/25/2020 2:24 PM [employer] Body Mass Index 23.11 04/25/2020 2:24 PM [employer] Plan of Treatment Health Maintenance Due Date Last Done Comments COLOGUARD (AGES 45-75) - COL ON CA SCREENING 1977 COLON MONITORING 1977 COLONOSCOPY - COLON CA SCREENING 1977 CT COLONOGRAPHY - COLON CA SCREENING 1977 Colorectal Cancer Screening 1977 FIT - COLON CA SCREENING 1977 FLEX SIG - COLON CA SCREENING 1977 LIPID TESTING 1977 HIV SCREENING 1992 HEPATITIS C SCREENING 03/14/1995 HEPATITIS B VACCINE (1 of 3 - 19+ 3-dose series) 1996 COVID-19 VACCINE (2023-2 5 season) 2023 DEPRESSION SCREENING 02/26/2024 INFLUENZA VACCINE (#1) 2024 ZOSTER VACCINE (1 of 2) 2027 DTAP/TDAP/TD VACCINES (2 - T d or Tdap) 03/27/2030 03/27/2020 HIB VACCINE Aged Out No longer eligi ble based on patient's age to complete this topic HPV VACCINE Aged Out No longer eligi ble based on patient's age to complete this topic MENINGOCOCCAL (Group B) VACC INE SHARED DECISION-MAKING Aged Out No longer eligibl e based on patient's age to complete this topic MENINGOCOCCAL GROUPS A/C/Y/W VACCINE Aged Out No longer eligible b ased on patient's age to complete this topic PNEUMOCOCCAL VACCINE Aged Out No long er eligible based on patient's age to complete this topic Medical Devices Implanted Type Area Delinquent Tax Collector Device Identifier Shelf Expiration Date Model / Serial / Lot Prtc 7mm Axoguard Tissue 40mm Prcn Xclr Implanted:Qty: 1 on 03/27/2020 by Isaac Hernandez MD at [facility] Right: Hand [employer] 11/26/2021 [id number] / / Insurance [facility] MEDICAID Advance Directives * Full Code (Latest Code Status on File) Date Activated Date Inactivated Comments 03/27/2020 3:41 PM 03/28/2020 1:12 PM
--- OUTSIDE RECORDS SUMMARY | 2024-09-02 13:23 | XMS_ITS | Referral Summary ---
Author Organization [facility] Address [address] [place] [address] Care Team Providers Care Manager Packaging Name Role Phone No, Physician Primary Care Provider Allergies Active Allergy Reactions Criticality Noted Date Comments Tramadol Itching Low 11/15/2022 Medications SUMAtriptan (IMITREX) 25 mg tabletIndicatio ns:Migraine Take 1 tablet (25 mg total) by mouth once as needed for migraine May repeat dose once in 2 hours if no relief. Do not exceed 2 doses in 24 hours. 10 tablet 01/21/2023 Active Social History Tobacco Use Types Packs/Day Years Used Date Smoking Tobacco: Every Day Personal Safety Answer Date Recorded Have you ever been in or are you currently in a harmful physical or emotional relationship or is someone making you feel afraid or unsafe? Denies 01/21/2023 Sex and Gender Information Value Date Recorded Sex Assigned at Not on file Legal Sex Male 8:51 AM [employer] ANALYST Gender Identity Not on file Sexual Orientation Not on file Last Filed Vital Signs Vital Sign Reading Time Taken Comments Blood Pressure 138/66 01/21/2023 11:45 AM [employer]CEL ANALYST Pulse 68 01/21/2023 11:45 AM EXCEL ANALYST Temperature 36.8 C (98.2 F) 01/21/2023 5:38 AM EXCEL ANALYST Respiratory Rate 20 01/21/2023 11:45 AM EXCEL ANALYST Oxygen Saturation 99% 01/21/2023 11:45 AM EXCEL ANALYST Inhaled Oxygen Concentration - - Weight 95.3 kg (210 lb) 01/21/2023 1:23 AM EXCEL ANALYST Height 188 cm (6' 2) 01/21/2023 1:23 AM EXCEL ANALYST Body Mass Index 26.96 01/21/2023 1:23 AM EXCEL ANALYST Plan of Treatment Not on file Insurance Care Teams Manager Packaging Relationship Specialty Start Date End Date No, Physician PCP - General 01/20/23
== END 2024-09-02 13:14 | disposition home or self-care (01) ==
DX: H90.41 Sensorineural hearing loss, unilateral, right ear, with unrestricted hearing on the contralateral side (principal); H93.8X3 Other specified disorders of ear, bilateral; H93.13 Tinnitus, bilateral
CPT/HCPCS: 92557; 92567